=== PATIENT | male | born 1980 | race Caucasian/White ===

== ENCOUNTER 2018-03-25 19:42 | Emergency (ER) | payer OTHER ==
[~2018-03-25] VITALS: Ht 160 cm; Wt 91.4 kg
[2018-03-25 20:14] VITALS: Ht 160 cm; Wt 91.4 kg
[2018-03-25 21:29] VITALS: BP 111/72
== END 2018-03-25 21:29 | disposition home or self-care (01) ==
LOC: ED 19:42
DX: J06.9 Acute upper respiratory infection, unspecified (principal)